=== PATIENT | female | born 1950 | race Caucasian/White ===

== ENCOUNTER 2019-06-22 05:46 | Day surgery (SDC) | payer MEDICARE ==
[2019-06-21 10:25] VITALS: BMI 32.1
[~2019-06-22 05:46] MED LIST: Fluorouracil 100 MG, Enoxaparin Sodium 25 MG, EPINEPHrine 0.3 MG in Ophthalmic Irrigati... IRR SCH
[2019-06-22] MEDS ORDERED: Phenylephrine 2.5% Ophth Soln 5 ML BOT ONE (06:06)
[2019-06-22] MEDS ORDERED: Cyclopentolate 1% Opth Drop 2 ML BOT ONE (06:06)
[2019-06-22] MEDS ORDERED: PROPOFOL 20 ML ONE (06:27)
[2019-06-22] MEDS ORDERED: Midazolam HCl 2 mg/2 ml Vial ONE (06:50)
--- NOTE | 2019-06-22 09:49 | OP ---
DATE OF PROCEDURE: 06/22/2019 PREOPERATIVE DIAGNOSIS: Macular hole, left eye. POSTOPERATIVE DIAGNOSIS: Macular hole, left eye. PROCEDURE PERFORMED: Pars plana vitrectomy and membrane peel, left eye. ANESTHESIA: Local with monitored anesthesia care. PROCEDURE IN DETAIL: The patient was identified in the preoperative holding area. Appropriate informed consent for the planned surgical procedure for the left eye had been obtained. The patient was transported to the operative suite where appropriate cardiopulmonary monitoring was established. Local anesthesia was obtained using a retrobulbar modified Van Lint lid block using a 50:50 mix mixture of 4% lidocaine and 0.75% bupivacaine. The patient was prepped and draped in the usual sterile manner for ophthalmic surgery in the left eye. A lid speculum was placed in the left eye. A 25-gauge trocar was placed in the conjunctiva and sclera superotemporally, inferotemporally, supranasally. Infusion line was placed inferotemporally. Light pipe and vitreous cutter were inserted into the eye. Core vitrectomy was performed. Posterior hyaloid face was elevated and peeled into the periphery using vacuum suction. The vitreous was trimmed and removed with the vitreous cutter. Indocyanine green dye was infused on the posterior pole x1, identifying the internal limiting membrane. This was elevated with a membrane scraper and peeled across the macula using end-gripping forceps. Indirect ophthalmoscopy was used to exam the retina 360 degrees. Prophylactic laser was placed behind the sclerotomy sites. Air-fluid exchange was performed with 10 minutes being allowed for the fluid to drain posteriorly, 28% sulfur hexafluoride gas was infused into the eye. Trocars were removed. Eye was noted to retain pressure well. Retrobulbar Kenalog and subconjunctival Ancef were placed. Antibiotic ointment was placed. The eye was patched and shielded. The patient was taken to postoperative recovery unit in good condition, having suffered no immediate perioperative complications. The patient was instructed to keep patch and shield on, avoid lifting or bending, followup appointment with Dr. Wright. Job ID: [id number]
[2019-06-22] MEDS ORDERED: Lidocaine 1% PF 5 ML VIAL ONE (11:08)
[2019-06-22] MEDS ORDERED: Maxitrol 0.1% Opth Oint 3.5 GM TUBE ONE (11:08)
[2019-06-22] MEDS ORDERED: Bupivacaine PF 0.75% SDV 10 ML ONE (11:08)
[2019-06-22] MEDS ORDERED: Indocyanine Green 25 MG/10 ML VIAL ONE (11:08)
[2019-06-22] MEDS ORDERED: CEFAZOLIN 1 GM VIAL ONE (11:08)
[2019-06-22] MEDS ORDERED: Enoxaparin Sodium 30 MG/0.3 ML SYRINGE ONE (11:08)
[2019-06-22] MEDS ORDERED: Triamcinolone 40 MG/ML VIAL ONE (11:08)
[2019-06-22] MEDS ORDERED: Lidocaine 4% PF 5 ML AMP ONE (11:08)
== END 2019-06-22 09:18 | disposition home or self-care (01) ==
LOC: SDC 05:46
PROVIDERS: ATTEND Ophthalmology Retina Specialist
PROC: 08T53ZZ Resection of Left Vitreous, Percutaneous Approach (ICD-10-PCS; principal; 2019-06-22)
PROC: 08NF3ZZ Release Left Retina, Percutaneous Approach (ICD-10-PCS; 2019-06-22)
DX: H35.342 Macular cyst, hole, or pseudohole, left eye (principal); I10 Essential (primary) hypertension; Z79.899 Other long term (current) drug therapy; Z91.041 Radiographic dye allergy status; Z85.038 Personal history of other malignant neoplasm of large intestine; Z85.43 Personal history of malignant neoplasm of ovary; Z87.891 Personal history of nicotine dependence; Z90.49 Acquired absence of other specified parts of digestive tract
CPT/HCPCS: 67025; J0171; J0690; J1650; J2001; J2250; J2704; J3301; J3490; J9190